=== PATIENT | male | born 1970 | race Caucasian/White ===

== ENCOUNTER 2023-03-21 11:07 | Outpatient (REF) | payer MEDICAID, SELFPAY ==
--- NOTE | ~2023-03-21 | XR_ITS ---
EXAMINATION: XR LUMBOSACRAL SPINE CLINICAL INFORMATION: Lower back pain. COMPARISON: None available. TECHNIQUE: AP and lateral views of the lumbar spine and lateral view of the lumbosacral junction. FINDINGS: Vertebral body heights and alignment are normal. There is moderate disc space narrowing at L5-S1. The remaining disc spaces are well-maintained. There is very mild anterior spondylosis at T12-L1, L4-L5 and L5-S1. No acute fracture or spondylolisthesis is seen. The posterior elements are intact. The paravertebral soft tissues are unremarkable. XR/XR lumbar spine 2-3V IMPRESSION: 1. At L5-S1, there is moderate degenerative disc disease. 2. There is very mild anterior spondylosis at T12-L1, L4-L5 and L5-S1.
== END 2023-03-21 11:08 | disposition home or self-care (01) ==
LOC: HO.HMGCX 11:07
PROVIDERS: PCP Internal Medicine; Visit Provider Internal Medicine
DX: M54.50 Low back pain, unspecified (principal); M54.30 Sciatica, unspecified side
CPT/HCPCS: 72100

== ENCOUNTER 2023-08-18 12:31 | Outpatient (REF) | payer MEDICAID, SELFPAY ==
[2023-08-23 13:29] LABS: Lyme Abs Screen <0.90 index
== END 2023-08-18 12:32 | disposition home or self-care (01) ==
LOC: HO.HMGCLDS 12:31
PROVIDERS: PCP Internal Medicine; Visit Provider Internal Medicine
DX: T14.8XXA Other injury of unspecified body region, initial encounter (principal); W57.XXXA Bitten or stung by nonvenomous insect and other nonvenomous arthropods, initial encounter; Y93.9 Activity, unspecified; Y92.9 Unspecified place or not applicable; Y99.9 Unspecified external cause status
CPT/HCPCS: 36415; 86617; 86618

== ENCOUNTER 2023-11-01 16:01 | Outpatient (REF) | payer MEDICAID, SELFPAY ==
--- NOTE | ~2023-11-01 | XR_ITS ---
EXAMINATION: XR CHEST CLINICAL INFORMATION: Rule out pneumonia. COMPARISON: None available. TECHNIQUE: 2 views of the chest were obtained. FINDINGS: Dextroscoliosis of the thoracic spine. No pleural effusion. No focal consolidation. XR/XR chest 2V IMPRESSION: No evidence of pneumonia.
== END 2023-11-01 16:02 | disposition home or self-care (01) ==
LOC: HO.XRAY 16:01
PROVIDERS: Visit Provider Internal Medicine
DX: D72.829 Elevated white blood cell count, unspecified (principal)
CPT/HCPCS: 71046

== ENCOUNTER 2023-11-02 10:09 | Outpatient (REF) | payer MEDICAID, SELFPAY ==
[2023-11-02 13:06] LABS: Appearance Urine Clear; Color Urine Yellow; Glucose Urine UA Negative (Negative); Leukocyte Esterase Urine Negative (Negative); Nitrite Urine Negative (Negative); PH 5.5 (5.0-9.0); Specific Gravity - Urine 1.025 (1.005-1.025); Urine Blood Negative (Negative); Urine Ketones Negative (Negative); Urine Protein Negative (Neg-Trace)
== END 2023-11-02 10:10 | disposition home or self-care (01) ==
LOC: HO.HMGCLDS 10:09
PROVIDERS: PCP Internal Medicine; Visit Provider Internal Medicine
DX: Z11.2 Encounter for screening for other bacterial diseases (principal)
CPT/HCPCS: 81003; 87086

== ENCOUNTER 2024-08-06 11:38 | Outpatient (REF) | payer MEDICAID, SELFPAY ==
--- NOTE | ~2024-08-06 | XR_ITS ---
EXAMINATION: XR FINGERS LEFT HISTORY: LEFT INDEX FINGER PAIN AND SWELLING COMPARISON: There are no prior studies available for comparison. FINDINGS: Three views of the left index finger are submitted. Osseous mineralization is normal. There is no fracture or dislocation. The joint spaces are preserved. The soft tissues are unremarkable. XR/XR finger LT min 2V IMPRESSION: Unremarkable examination of the left index finger. Electronically signed by: Dov Hoffman MD 08/07/2024 09:01 AM EDT
--- OUTSIDE RECORDS SUMMARY | 2024-08-06 14:26 | XMS_ITS | Data Portability ---
Author Organization [place] [facility], Allergy Address [address] [address] Care Team Providers Care Communications Technologist Name Role Phone RINA CHARLES Primary Care Provider [phone] Assessment Encounter Date Assessment Date Assessment LastModified by Organization Details LastModified Time 12/21/2023 12/21/2023 Patient's audiogram is demonstrating an asymmetric sensorineural hearing loss affecting the left ear greater than right. This is enough of an asymmetry to warrant retrocochlear workup. Recommend MRI scan of the brain and internal auditory canals with gadolinium. We will arrange this give pt results over the portal. Not available 12/21/2023 16:30:44 06/25/2024 06/25/2024 54-year-old male presents for reevaluation of hearing loss. MRI of the IAC was reviewed showing no retrocochlear pathology or other abnormality. Recommended updated audiometric testing today but he cannot stay for appointment. He will return in 6 months at which time hearing test can be repeated. Will call for sooner evaluation if he changes his mind about hearing aids or has any acute changes in hearing. All questions were answered. [email or web address] Not available 06/25/2024 12:09:26 Plan of Treatment Reminders Order Date Submit Date Provider Last Modified By Organization Details Last Modified Time Details Appointments Hearing Test 2024 01:00P M Hearing Test Not available Not available Not available Establish ed 15 2024 01:30P M CLARITA REYES PA-C Not available Not available Not available Lab None recorded. Referral None recorded. Procedures None recorded. Surgeries None recorded. Imaging MRI, brain + internal auditory canal, w/wo contrast - MRI, BRAIN + INTERNAL AUDITORY CANAL, W/WO CONTRAST 2023 024 [facility] ([facility]), [address], [place], [address], 01/05/2024 15:20:10 Medication Orders None recorded. Patient TargetsNo targets recorded. Patient InstructionsNo instructions recorded. Reason for Referral None Reported. Results Created Date Observation Date Name Description Value Unit Range Abnormal Flag Note LastModifiedBy Organization Detail LastModifiedTime 12/22/19 audio gram No observ ation record ed. BARCODE Not Available 2023 09:37:55 01/05/20 24 01/04/2024 MRI, brain + brain stem, w/wo contr ast [facility] Access ion Number : [id number] Name: Jorge L Hayes Record Number : [id number] Date of : 1969 Date of Exam: 2023 Referr ing Physic anali: Farrah Pradhan re [facility] [address] [place] [address] Exam: MR Brain (C-/C+ ) CPT 02774 Room Descri ption: [place] GE Pion 3T INDICA TION: Sensor ineura l hearin g loss. TECHNI QUE: Multip lanar multis equenc e MRI of the brain was perfor med before and after the admini strati on of 14 mL of Dotare m. COMPAR HENRY: No prior FINDIN GS: The crania l nerves VII and VIII comple xes are symmet kamla. The bilate ral communications marketing intern al audito ry canals are unrema rkable . The T2 signal within the cochle a and semici rcular canals bilate rally is normal . Cister nal segmen ts of the bilate ral trigem inal nerves are normal . The Meckel caves and cerebe llopon chandni angle cister ns are unrema rkable . There is no abnorm al enhanc ement. There are mild T2 hyperi ntensi ties in the perive ntricu lar and subcor tical white matter . The ventri cles and sulci normal in size. The midlin e the struct ures, main vascul ar flow voids, and basal cister ns are normal . The extrac ranial soft tissue s, calvar ium, and skull base are normal . The orbits and globes are normal . IMPRES EMELI: Unrema rkable bilate ral communications marketing intern al audito ry canals . Mild nonspe cific white matter T2 hyperi ntensi ties. Electr onical ly Signed By: Lita [email or web address] [facility] ([facility]) [address], [place], [address], 01/11/2024 12:24:47 Result Notes None recorded. Problems Name Problem SNOMED Code Status Onset Date Resolution Date Notes Provider Name and Address Organization Details Recorded Time Infective otitis externa 02807438 Active 2013 Otitis externa; infective ; CMS Risk: low risk CMS Treatment : establish ed problem (to examiner) : stable or improved Note: Date Diagnosed : 01/27/2014 2:18 PM (380.10) Not Available [facility] 4 02:30:39 Sensorine ural hearing loss of bilateral ears 481852013 Active 2013 [facility] Bilateral ly; Note: Date Diagnosed : 01/27/2014 12:52 PM (389.18) Not Available [facility] 4 02:30:47 Impacted cerumen in right ear 27437594906 17363 Active 2023 VANESSA PRADHAN MD [address] [place] [address], [phone] , [place] - [facility] 17:23:46 Problem Notes None recorded. Procedures Surgical History Date Name Laterality Status Provider Name and Address Organization Details Recorded Time 4 Comp Audio with Tymps (15282 & 85522) completed ALEM MELLO [address], [address], [place] - [facility] 12/21/2023 15:55:16 Cerumen removal with microscope right completed VANESSA PRADHAN MD [address] [place] [address], [phone], [place] - [facility] 12/21/2023 16:37:16 Imaging Results Imaging Date Name Status LastModified by Organiz ation Details LastModified Time 12/22/2023 audiogram completed BARCODE Information no t available 12/22/2023 09:37:55 01/04/2024 MRI, brain + brain stem, w/wo contrast completed [email or web address] [facility] ([facility]) [address] [place], [address], 01/11/2024 12:24:47 Procedure Notes None recorded. Medical Equipment None Reported. Allergies No known drug allergies Medications Name Sig Start Date Stop Date Status Note LastModified by Organization Details LastModified Time gabapenti n 600 mg tablet TAKE 1 TABLET BY MOUTH THREE TIMES A DAY active Not Available Not Available No t Available doxycycli ne hyclate 100 mg capsule TAKE 1 CAPSULE BY MOUTH TWICE A DAY FOR 14 DAYS 12/20 completed Not Available Not Available Not Available meloxicam 15 mg tablet TAKE 1 TABLET BY MOUTH EVERY DAY active Not Available Not Available No t Available gabapenti n 400 mg capsule TAKE 1 CAPSULE BY MOUTH THREE TIMES A DAY 12/20 completed Not Available Not Available Not Available clotrimaz ole 1 % topical solution 12/20 completed Medicati on ID: [id number] Pre scribed By Name: Carlos Story rd, MLuis Felipe Bra nd Name: clotristephanie glover Method: E-Prescr ibed Sub s Allowed: subs OK Speci al Instruct ion: 3 drops to affected ear two times a day Medi cationGe nericNam e: clotrima zole Not Available Not Available Not Available Vitals Date Recorded Body weight Body mass index (BMI) Body height Provider Name and Address Organization Details Last Updated DateTime 06/25/2024 55997.78 g 25.1 kg/m2 170.18 cm Ankita Lira [place] - [facility] 06/25/2024 11:20:03 Social History None recorded. Functional Status None recorded. Mental Status None recorded. Family History Nothing Reported. Medical History No medical history recorded. Past Encounters Encounter ID Performer Location Encounter Start Date Encounter Closed Date Diagnosis/Indication Diagnosis SNOMED-CT Code Diagnosis ICD10 Code Diagnosis Note [id number] VANESSA PRADHAN MD [facility] [address] [address] 12/21/2023 14:56:02 12/21/2023 16:41:31 Sensorineural hearing loss of bilateral ears 761492506 H90.3 Audiologic al evaluation results:Ri ght ear:{{Norm al sloping* M ild Modera te Moderat arlene-severe Severe Pr ofound Nor mal auditory thresholds }} to {{mild mod erate* mod erately-se anabel sever e profound with}} {{sensorin eural hearing loss with* cond uctive hearing loss with mixed hearing loss with}} {{excellen t* good fa ir poor no t measurable }} word recognitio n.Left ear:{{Norm al sloping* M ild Modera te Moderat arlene-severe Severe Pr ofound Nor mal auditory thresholds }} to {{mild mod erate* mod erately-se anabel sever e profound with}} {{sensorin eural hearing loss with* cond uctive hearing loss with mixed hearing loss with}} {{excellen t* good fa ir poor no t measurable }} word recognitio n.Tympanom etry:Right Ear:{{Type A Type As Type Ad Type C Type C, shallow & rounded Ty pe B* Type B with large volume Cou ld not maintain a hermetic seal}}Left Ear:{{Type A* Type As Type Ad Type C Type C, shallow & rounded Ty pe B Type B with large volume Cou ld not maintain a hermetic seal}} Patient's audiogram shows bilateral {{mild mod erate* sev ere}} sensorineu ral hearing loss with {{well maintained * moderate ly reduced po or}} speech discrimina tion. There is enough hearing loss to affect day-to-day hearing performanc e. We discussed in detail the pros and cons of amplificat ion (hearing aids). We discussed the connection between untreated hearing loss and increased risk of dementia, falling and accidents. After full discussion , the patient expressed {{interest * no interest}} in learning more about amplificat ion options. Accordingl y {{we will set them up for a hearing aid evaluation I have provided a copy of the audiogram and medical clearance for amplificat ion so the patient can pursue this at their convenien e I have provided a copy of the audiogram, a list of [facility] hearing aid providers, and medical clearance for amplificat ion so the patient can pursue this at their convenienc e*}}. Patient is medically cleared for amplificat ion bilaterall y. Impacted c erumen in right ear [id number] 813286 H61.21 Patient had a thick film of ceruminous debris coating the entire right medial canal and tympanic membrane. This was carefully peeled out today under the binocular microscope . The underlying tympanic membrane noted to be normal without thickening or middle ear effusion. This is likely to relieve his sensation of blockage in the right ear.Today we spent some time talking about the fact that cerumen is a natural antibiotic , antifungal , waterproof er, and moisturize r of the delicate external auditory canal skin. The use of Q-tips strips away this natural protection and makes the ear canal skin more likely to become itchy, irritated or become infected. There is also the risk of trauma to the tympanic membranes as well. We discussed proper aural hygiene techniques to maintain the health of the external ears.Patie nt asked about the need for preventati ve cerumen disimpacti on, so we will set him up for a visit with the physician public services assistant in 6 months for reassessme nt in this regard. [id number] VANESSA PRADHAN MD [facility] [address] [phone] 06/25/2024 11:07:32 06/25/2024 11:40:43 Sensorineural hearing loss of bilateral ears 315367829 H90.3 Health Concerns Section Related Observation LastModified by Organization Detai ls LastModified Time None Recorded Concern Status LastModified by Organization Details LastModified Time None Recorded Advance Directives Directive None Recorded Payers Encounter Date Sequence Insurance Name Policy Number Policy Griffith Covered Member ID Griffith Member ID Guarantor Name 12/21/2023 1 [place] [facility] Jorge L Hayes [id number] Jorge L Hayes 06/25/2024 1 [place] [facility] Jorge L Hayes [id number] Jorge L Hayes Notes Date Note Type Note Provider Name and Address Organization Details Recorded Time 12/21/2023 text/html 53-year-old male who comes in today for evaluation of his ears and hearing. Patient reports that he is suffering from long-term right-sided facial shingles manifested by chronic abnormal sensation in his face. Patient also noticing a chronic blockage sensation of the right ear compared to the left. 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 He was seen at the [facility] over the summer where no abnormalities were noted on physical exam or audiometric testing. He continues to have a sensation like there is a film over my ear . Patient also notes occasional preauricular lump that will occasionally enlarge, then disappear. Currently asymptomatic in this regard. VANESSA PRADHAN MD [address] [place] [address], [phone], [facility] 12/21/2023 17:25:47 06/25/2024 text/html 54-year-old male presents for reevaluation of hearing loss. At his initial evaluation he was noted to have asymmetric hearing loss, left greater than right. He had an MRI of the IAC. He has not noticed any changes in his hearing or vertigo. He was a candidate for amplification but is not interested in pursuing this at this time. VANESSA PRADHAN MD [address] [place] [address],[address], [phone], [facility] 06/25/2024 17:02:23
== END 2024-08-06 11:39 | disposition home or self-care (01) ==
LOC: HO.HMGCX 11:38
PROVIDERS: PCP Internal Medicine; Visit Provider Internal Medicine
DX: M79.645 Pain in left finger(s) (principal); M79.89 Other specified soft tissue disorders
CPT/HCPCS: 73140

== ENCOUNTER → 2024-08-06 12:05 | Outpatient (BNV) | payer MEDICAID, SELFPAY | PROVIDERS: PCP Internal Medicine; Visit Provider Radiology Diagnostic Radiology | DX: M79.645 Pain in left finger(s) (principal) | CPT/HCPCS: 73140 ==

== ENCOUNTER 2024-10-09 11:08 | Outpatient (RCR) | payer MEDICAID, SELFPAY ==
--- NOTE | 2024-08-28 12:59 | MHC.OT.EP ---
[address] [phone] Occupational Therapy Plan of Care Patient Name: Jorge L Hayes Date of Evaluation: 08/28/24 Diagnosis: Left Index Pain and Swelling Pain Location: Pain free at rest 2-3/10 low pain w/ use Pain Score: 2 Pain Scale Used: Numeric (0 - 10) Aggravating Factors: Forceful use, twisting use Alleviating Factors: Rest, taking melaxocam at baseline for [facility] shingles Assessment: 54 yo male referred to OT w/ left index pain and swelling after twisting his finger while removing ice from and ice tray,. Injury occurred a couple months ago. X-ray (-) 08/06/24 for acute changes. On assessment today, symptoms are consistent with sagittal band strain. We have placed index in MCP block splint to allow for healing and discussed activity modification. We will follow up for further splinting needs and progression of therapy. Frequency and Duration: The patient will be seen 1x/wk for 8 weeks Short Term Goals: Ind w/ orthosis wear Good follow through w/ AROM exercises within precautions Pt to demo modifications of daily activities to reduce strain/overuse of index Ems Helicopter Pilot Goals: Pt to demo good left hand AROM w/ minimal pain and no observed tendon subluxation Treatment Plan: Therapeutic Exercise Therapeutic Activity Home Exercise Program Splinting Patient Education Edema Control ADL Training Ultrasound Paraffin Fluidotherapy MHP Cold Packs Joint Mobilization Soft Tissue Mobilization Kinesiotaping Electronically Signed By: Miesha Ramires OTR/Nat CHT Please Sign and return to therapist. Thank you once again for your referral.
--- NOTE | 2024-10-11 09:45 | MHC.OT.DC ---
[address] [phone] F: [phone] Occupational Therapy Discharge Note Patient Name: Jorge L Hayes Provider: Dr Adams Graf Diagnosis: Left Index Pain and Swelling Date of Evaluation: 08/28/24 Date of Discharge: 10/09/25 Treatments to Date: 3 Discharge Status: Achieved Goals Improved Function Independent with HEP Discharge Summary: Jorge L was seen in OT for left index pain and swelling after traumatic injury, appears to have sagittal band injury. He has done 6 weeks of intermittent immobilization and doing well. Able to wean from MCP block orthosis and progress w/ range and strengthening. No further OT needed at this time. Electronically Signed By: Miesha Ramires OTR/Nat CHT Reviewed/agree with student documentation: Therapist: Please Sign and return to therapist, thank you for your referral.
== END 2025-02-19 09:36 | disposition home or self-care (01) ==
LOC: HO.OT 11:08
PROVIDERS: PCP Internal Medicine; Visit Provider Internal Medicine
DX: M79.645 Pain in left finger(s) (principal)
CPT/HCPCS: 97110; 97165; 97760

== ENCOUNTER 2025-01-07 17:40 | Emergency (ER) | payer OTHER, SELFPAY ==
[2025-01-07 18:03] VITALS: BP 124/68; PULSE 71; RESP 16; TEMP 36.3; O2SAT 98; BMI 26.0
--- NOTE | 2025-01-07 18:03 | ED_ITS ---
HPI - General Adult General Chief complaint: General Medical Stated complaint: Needs medication refill Time Seen by Provider: 01/07/25 18:25 Source: patient and RN notes reviewed Mode of arrival: ambulatory Limitations: no limitations History of Present Illness ED Provider: Izzy Field PA-C HPI narrative: This is a 54-year-old male, with a past medical history of post herpetic neuralgia chronically on gabapentin, who presents emergency department for medication refill for gabapentin. Patient reports that his primary care physician, Dr. Graf is retired. Reports that the office his care was transferred to, they are unable to see him until April. Patient reports that he only has several days left of his gabapentin. He states that he is unsure what to do as they state that they are unable to fill this medication. Denies any current complaints including but not limited to fevers, chills, chest pain, shortness of breath. MD complaint: Medication refill Relieving factors: none Exacerbating factors: none Associated symptoms: denies other symptoms Treatments prior to arrival: none Related Data Previous Rx's ?Medication ?Instructions ?Recorded lidocaine 5 % topical cream 1 appl topical BID PRN pos t 07/12/22 herpetic neuralgia #30 grams meloxicam 15 mg tablet 15 mg PO DAILY #60 tabs 06/23 05/16 gabapentin 100 mg capsule 300 mg (3 x 100 mg) PO Q8H 3 0 days 09/21/22 #90 caps gabapentin 600 mg tablet 600 mg PO TID 2 weeks #42 ta bs 01/07/25 Allergies Allergy/AdvReac Type Severity Reaction Status Date / Time No Known Allergies Allergy Verified 01/07/25 18:04 Review of Systems Review of Systems: Constitutional : No Fever, No Chills ENT/Mouth : No sore throat, No Rhinorrhea Eyes: No Eye Pain, No Swelling, No Redness Cardiovascular : No Chest Pain, No SOB Respiratory : No Cough, No Sputum Gastrointestinal : No Nausea, No Vomiting, No Diarrhea, No abdominal Pain Genitourinary : No Dysuria, No Hematuria Musculoskeletal : No joint pain, No Myalgias, No Joint Swelling Skin : No Skin Lesions Neuro : No Weakness, No Numbness, No Headache All other systems reviewed and are negative Yes all other systems are reviewed and are negative Constitutional: Constitutional: Reports as per [facility] Social History Social History Advance Directives: No Advance Directives Information Provided: No Physical Exam ED Exam Exam: General: Awake, alert, and oriented X3. No acute distress. HEENT: Normal inspection; right pupil with chronic pupillary defect, reactive, right eye EOMI, PERRLA CVS: Normal heart rate and rhythm. Pulses normal. Respiratory: No respiratory distress Skin: Warm, dry, no rashes noted to exposed skin. Normal skin color. Normal skin turgor. Extremities: Normal to inspection Neuro: Oriented X 3. No motor deficit. No sensory deficit. Vital Signs: Vital Signs - 24 hr 01/07/25 18:03 01/07/25 18:46 Temperature 97.4 F 97.4 F Pulse Rate 71 71 Respiratory Rate 16 16 Blood Pressure 124/68 124/68 Pulse Oximetry 98 98 Oxygen Delivery Method Room Air Room Air BMI result Body Mass Index 26.0 Medical Decision Making Medical Decision Making MDM Narrative: This is a 54-year-old male who presents emergency department for medication refill of gabapentin. On arrival, vital signs within normal limits. He is speaking full sentences under no acute distress. Per prescription monitoring program, there is evidence that patient has been prescribed gabapentin 600 milligrams 3 times a day for many months, with the same prescriber. Patient is unable to be seen by a PCP until April. I discussed this with my attending physician, will refill for 2 weeks. I urged the importance of calling that primary care physician's office back to see if they are able to send over a prescription until he is seen in April. He also discussed possibly switching over to a different primary care, specifically a PCP that his gile sees, as they mentioned possibly sending over a 1 time emergency script until he is seen in the office. I stressed the importance that we can not routinely refill these medications as this is a chronic controlled substance. He understands, advised that he may not be able to return to have this medication refilled in the [facility]. He understands, and will attempt to follow-up with the PCP [place]. Differential Diagnosis Differential Diagnoses: The differential diagnosis associated with the presentation includes Medication refill, medication noncompliance, neuralgia Discharge Plan Discharge Clinical Impression: Medication refill Patient Disposition: Home, Self-Care Instructions: Medicine Refill (ED) Additional Instructions: You were seen in the emergency department for medication refill. Gabapentin is a controlled substance, therefore we are very limited on how many pills we are able to dispense and refills. Please be advised that we can not routinely refill this medication through the emergency room therefore it is pertinent that you follow-up with the primary care physician. You need to follow-up with a primary care physician to have any further refills. Please call tomorrow to set up an appointment and let them know that you were chronically prescribed this medication in you and you have been on this for many years. If any new or worsening symptoms occur please return for re-evaluation. Prescriptions: New gabapentin 600 mg tablet 600 mg PO TID 14 Days Qty: 42 0RF No Action gabapentin 100 mg capsule 300 mg PO Q8H 30 Days Qty: 90 0RF Rx Instructions: changed to 300mg pills, further refills must come from PCP, walk-in clinic can not continue refills. meloxicam 15 mg tablet 15 mg PO DAILY Qty: 60 1RF lidocaine 5 % cream 1 appl topical BID PRN (Reason: post herpetic neuralgia) Qty: 30 1RF Interventions: ED Discharge Assessment Last Done: 01/07/25 18:46 Discharge Date/Time: 01/07/25 18:55 Print Language: Indonesian
[2025-01-07 18:46] VITALS: BP 124/68; PULSE 71; RESP 16; TEMP 36.3; O2SAT 98
--- OUTSIDE RECORDS SUMMARY | 2025-01-07 19:18 | XMS_ITS | Clinical Summary ---
Author Organization [employer] Address [address] [place] [address] [address] [place] [address] Care Team Providers Care Tap Out Operator Name Role Phone Yoel Cody Ynes Primary Care Provider [phone] Social History Tobacco Use Types Packs/Day Years Used Date Smoking Tobacco: Never Assessed Sex and Gender Information Value Date Recorded Sex Assigned at Not on file Legal Sex Male 12:32 PM EST Gender Identity Not on file Sexual Orientation Not on file Plan of Treatment Health Maintenance Due Date Last Done Comments CT Colonography 1970 Colonoscopy 1970 Colorectal Cancer Screening 1970 Depression Screening 1970 FIT DNA/Cologuard 1970 FIT 1970 FOBT 1970 HIV Screening 1970 Lipid Panel 1970 SDOH Screening 1970 Sigmoidoscopy 1970 Disability Screening 1970 Alcohol/Substance Use Screening 1982 Tobacco Screening 1982 Hepatitis C Screening 02/06/1988 DTaP/Tdap/Td Vaccines (1 - Tdap) 1989 Hepatitis B Vaccines (1 of 3 - 19+ 3-dose series) 1989 Pneumococcal Vaccine: 50+ Ye ars (1 of 1 - PCV) 02/06/2020 Zoster Vaccines (1 of 2) 02/06/2020 COVID-19 Vaccine ( - 2023-2 5 season) 2024 Influenza Vaccine (#1) 2024 RSV Patients and Pa tients Aged 60 years or older (1 - 1-dose 75+ series) 2045 HIB Vaccines Aged Out No longer eligi ble based on patient's age to complete this topic HPV Vaccines Aged Out No longer eligi ble based on patient's age to complete this topic Hepatitis A Vaccines Aged Out No long er eligible based on patient's age to complete this topic IPV Vaccines Aged Out No longer eligi ble based on patient's age to complete this topic Meningococcal B Vaccine Aged Out No l onger eligible based on patient's age to complete this topic Meningococcal Vaccine Aged Out No rina madhu eligible based on patient's age to complete this topic RSV under 20 months Aged Out No longe r eligible based on patient's age to complete this topic Rotavirus Vaccines Aged Out No longer eligible based on patient's age to complete this topic Insurance [employer] Care Teams Tap Out Operator Relationship Specialty Start Date End Date Cody Diallo [address] [place] [address] PCP - General 01/07/25
--- OUTSIDE RECORDS SUMMARY | 2025-01-07 19:18 | XMS_ITS | Clinical Summary ---
Author Organization [facility] Address [address] [place] [phone] Phone Care Team Providers Care Rolling Mill Operator Helper Name Role Phone Adams Graf MD Primary Care Provider [phone] Allergies No known active allergies Medications doxycycline hyclate (VIBRAMYCIN) 100 MG capsule Take 1 capsule by mouth 2 (two) times a day. 08/18/2023 Active meloxicam (MOBIC) 15 MG tablet Take 1 tablet by mouth every morning. 08/30/2023 Active gabapentin (NEURONTIN) 600 MG tablet Take 600 mg by mouth 3 (three) times a day. 08/18/2023 Active Active Problems No known active problems Social History Tobacco Use Types Packs/Day Years Used Date Smoking Tobacco: Never Assessed Education Answer Date Recorded Are you interested in more education? Not on giles e 09/20/2023 Are you concerned about learning? Not on file 09/20/2023 No 09/20/2023 No 09/20/2023 Digital Access Answer Date Recorded No 09/20/2023 No 09/20/2023 Reliable internet access at home? Not on file 09/20/2023 Device with a working camera? Not on file Intimate Partner Violence Answer Date R ecorded Are you denied basic needs s uch as food, clothing, or medical care? No 11/02/2023 In the past 12 months have y ou been in a relationship with a person who hurts, threatens, or tries to control you? No 11/02/2023 Are you denied basic needs s uch as food, clothing, or medical care? No 11/02/2023 In the past 12 months have y ou been in a relationship with a person who hurts, threatens, or tries to control you? No 11/02/2023 Sex and Gender Information Value Date Recorded Sex Assigned at Male 06/16/2023 3:46 PM EST Legal Sex Male 9:35 PM EDT Gender Identity Male 06/16/2023 3:46 PM EST Sexual Orientation Straight 06/16/2023 3: 46 PM EST Last Filed Vital Signs Vital Sign Reading Time Taken Comments Blood Pressure 130/85 11/02/2023 11:31 PM EDT Pulse 60 09/20/2023 12:50 PM EDT Temperature 36.2 C (97.1 F) 11/02/2023 11:31 PM EDT Respiratory Rate 18 11/02/2023 11:31 PM EDT Oxygen Saturation 99% 11/02/2023 11:31 PM EDT Inhaled Oxygen Concentration - - Weight 73.9 kg (163 lb) 11/02/2023 11:31 PM EDT Height 170.2 cm (5' 7 ) 11/02/2023 11:31 PM EDT Body Mass Index 25.53 11/02/2023 11:31 PM EDT Plan of Treatment Not on file Medical Devices Not on file Insurance [facility] [address] [facility] Care Teams Rolling Mill Operator Helper Relationship Specialty Start Date End Date Adams Graf MD [address] [place] [id number] PCP - General Internal Medicine 06/16/23 Additional Source Comments The information contained in this document represents components of the legal health record. It is not the complete legal health record.[facility]
--- OUTSIDE RECORDS SUMMARY | 2025-01-07 19:18 | XMS_ITS | Encounter Summary ---
Author Organization [facility] Address [address] [facility] [address] [place] [phone] Phone Care Team Providers Care Wharf Tender Head Name Role Phone Adams Graf MD Primary Care Provider [phone] Encounter Details Date Type Department Care Team (Late st Contact Info) Description 01/09/2018 Documentation [facility] [address] [place] [address] Ynes Song, PT [address] [place] [address] Social History Tobacco Use Types Packs/Day Years Used Date Smoking Tobacco: Never Assessed Sex and Gender Information Value Date Recorded Sex Assigned at Male 06/16/2023 3:46 PM EST Legal Sex Male 9:35 PM EDT Gender Identity Male 06/16/2023 3:46 PM EST Sexual Orientation Straight 06/16/2023 3: 46 PM EST documented as of this encounter Plan of Treatment Not on file documented as of this encounter Visit Diagnoses Not on filedocumented in this encounter Care Teams Wharf Tender Head Relationship Specialty Start Date End Date Adams Graf MD [address] [place] [address] [phone] PCP - General Internal Medicine 06/16/23 documented as of this encounter Additional Source Comments The information contained in this document represents components of the legal health record. It is not the complete legal health record.[facility]
== END 2025-01-07 18:55 | disposition home or self-care (01) ==
PROVIDERS: Emergency Provider Emergency Medicine
DX: B02.29 Other postherpetic nervous system involvement (principal); Z76.0 Encounter for issue of repeat prescription
CPT/HCPCS: 99282; 99283